=== PATIENT | male | born 1985 | race Caucasian/White ===

== ENCOUNTER 2019-08-07 13:07 | Inpatient (IN) | payer BC, SELFPAY ==
[2019-08-07] VITALS (8 sets, daily range): BP systolic 122–169; BP diastolic 83–114; PULSE 125–144; RESP 18–20; TEMP 36.5–37.6; O2SAT 97–100; BMI 43.7; BMI 42.0
--- NOTE | 2019-08-07 13:30 | CT_ITS ---
PROCEDURE: CT ABDOMEN PELVIS W CON CLINICAL INDICATION: left sided abd pain Left-sided abdominal pain with nausea COMPARISON: No exams were available for comparison TECHNIQUE: IV Contrast: 75ML OPTIRAY 350 Oral Contrast none Axial images obtained with sagittal and coronal reformats. All CT scans at the facility use one or more dose reduction, viz: automated exposure control, ma/kV adjustment per patient size (including targeted exams where dose is matched to indication, i.e. head), or iterative reconstruction technique. FINDINGS: LOWER THORAX: There are several noncalcified nodular densities in the right lower lobe which measure up to 9 mm. At least 5 noncalcified nodules are present in the right lung base medially and posteriorly. There is a 9 mm noncalcified nodule in the left lower lobe medially and a 4 mm noncalcified nodule in the left lung base posteriorly. ABDOMEN & PELVIS: There is diffuse fatty liver infiltration. The gallbladder, kidneys, and adrenal glands are unremarkable. There is diffuse infiltration of the peripancreatic fat along the body and tail the pancreas with scattered areas of increased density in the left upper quadrant peritoneal fat. There is a small amount of perisplenic fluid. There is thickening of the left anterior pararenal fascia with fluid in the left pericolic gutter. There is some thickening of the posterior lateral wall the greater curvature of the stomach. There is also some thickening of the colon in the left upper quadrant at the splenic flexure region. These findings are consistent with acute pancreatitis with phlegmonous changes and peripancreatic fluid collections. Fluid is present in the left anterior pararenal fascia and extends inferiorly into the lateral conal fascia. No obvious abscess or pancreatic necrosis. No acute bony anomalies.. There is a small umbilical hernia which contains fat IMPRESSION: Findings are compatible with acute pancreatitis with phlegmonous changes in the left upper quadrant and peripancreatic fluid collections. No obvious abscess or pancreatic necrosis. Noncalcified bilateral lower lobe pulmonary nodules. Consider dedicated chest CT with contrast for more thorough evaluation. Dictated by: Carlos Conroy MD 08/07/2019 14:31 Electronically signed by Carlos Conroy MD in [place] 08/07/2019 14:31
--- NOTE | 2019-08-07 13:31 | HMH.EDABDPAI ---
ED Disposition Clinical Impression: DKA (diabetic ketoacidoses) Qualifiers: Diabetes mellitus type: other specified (including DAYA) Diabetes mellitus complication detail: without coma Qualified Code(s): E13.10 - Other specified diabetes mellitus with ketoacidosis without coma Pancreatitis Qualifiers: Chronicity: acute Pancreatitis type: unspecified pancreatitis type Acute pancreatitis complication: unspecified Qualified Code(s): K85.90 - Acute pancreatitis without necrosis or infection, unspecified Disposition: Admitted As Inpatient Condition on Discharge: Serious Referrals: Preston Dawn MD [Primary Care Provider] - - Critical Care Critical Care Time: Yes Attestation: On 08/07/19, the high probability of a clinically significant, sudden or life threatening deterioration of the following system(s) required my full and direct attention, intervention and personal management. The time I documented below is in addition to time spent performing reported procedures but includes the following listed in this critical care notation. Total Critical Care Time: 35 Vital system(s) involved:: Circulatory Failure, Metabolic Failure, Renal Failure My critical care processes included: Assessment & monitoring of V/S, Initial and Re-exams, Data Review/Interpretation, Coordinating Care, Medication Orders and management, Documentation Medical Decision Making - Medical Records Medical records reviewed: Yes: I reviewed the patient's medical records. - Gonzalez Inquiry Pt receiving controlled substance: No Vital Signs: 08/07/19 13:09 Temperature 97.7 F Temperature Source Oral Pulse Rate [Radial] 144 H Respiratory Rate 20 Blood Pressure [Right Arm] 159/114 H Blood Pressure Mean [Right Arm] 129 Blood Pressure Source [Right Arm] Automatic Cuff Blood Pressure Position [Right Arm] Sitting 02 Sat by Pulse Oximetry 100 Oxygen Delivery Method Room Air - Lab Data Lab Results 08/07/19 13:39: WBC 15.1 H, RBC 5.94, Hgb 17.0, Hct 54.3 H, MCV 91.4, MCH 28.5, MCHC 31.2 L, RDW 13.9, Plt Count 255, MPV 10.0, Neut % (Auto) 69.1, Lymph % (Auto) 21.2, [place] % (Auto) 8.7, Eos % (Auto) 0.2, Baso % (Auto) 0.9, Neut # (Auto) 10.4 H, Lymph # (Auto) 3.2, [place] # (Auto) 1.3 H, Eos # (Auto) 0.0, Baso # (Auto) 0.1, Total Counted 100, Neutrophils % (Manual) 75, Lymphocytes % (Manual) 17, Monocytes % (Manual) 7, Eosinophils % (Manual) 1, Platelet Estimate Normal, Hypochromasia 1+ 08/07/19 13:39: Sodium 127 L, Potassium 3.8, Chloride 98, Carbon Dioxide 6 L*, Anion Gap 26.8 H, BUN 15, Creatinine 0.60 L, Estimated Creat Clear 181, Estimated GFR 155, Est GFR ( Amer) 188, Glucose 307 H, Calcium 9.7, Total Bilirubin 0.8, AST 28, ALT 25, Alkaline Phosphatase 155 H, Total Protein 8.5 H, Albumin 4.1, Globulin 4.4 H, Albumin/Globulin Ratio 0.9 L, Lipase 184 08/07/19 13:39: Acetone Level Large 08/07/19 14:14: Lactate 0.9 Result diagrams: 08/07/19 13:39 08/07/19 13:39 Orders (Tests/Meds): ED MEDICATIONS Generic Name Dose Route Start Last Admin Trade Name Freq PRN Reason Stop Dose Admin Sodium Chloride 1,000 mls @ 999 mls/hr 08/07/19 14:15 08/07/19 14:16 Sod Chlor 0.9% 1000ml Bag IV 08/07/19 15:15 999 mls/hr .Q1H1M KYMBERLY Administration Sodium Chloride 1,000 mls @ 999 mls/hr 08/07/19 14:15 Sod Chlor 0.9% 1000ml Bag IV 08/07/19 15:15 .Q1H1M KYMBERLY Insulin Human Regular 100 unit 101 mls @ 13.973 mls/hr 08/07/19 14:30 / Sodium Chloride IV 09/06/19 14:29 .Q7H14M KYMBERLY Protocol 0.1 UNITS/KG/HR Discontinued Medications Generic Name Dose Route Start Last Admin Trade Name Freq PRN Reason Stop Dose Admin Insulin Human Regular 10 unit 08/07/19 14:15 08/07/19 14:19 Humulin R Insulin 100 Units/Ml 10ml Vial IVP 08/07/19 14:16 Not Given ONCE ONE Ioversol 75 ml 08/07/19 13:57 08/07/19 13:58 Rad-Optiray 350 100ml Vial IV 08/07/19 13:58 75 ml ONCE ONE Administration Protocol Sodium Chloride 10 m
[2019-08-07 13:55] LABS: Alanine Aminotransferase 25 U/L (12-78); Albumin Level 4.1 g/dl (3.5-5.0); Albumin/Globulin Ratio 0.9 (1.1-1.8); Alkaline Phosphatase 155 U/L (38-126); Aspartate Amino Transferase 28 U/L (17-59); Bilirubin,Total 0.8 mg/dl (0.2-1.3); Blood Urea Nitrogen 15 mg/dl (9-20); Calcium 9.7 mg/dl (8.4-10.2); Chloride 98 mmol/L (98-107); Creatinine Clearance Estimated 181 mL/min (50-200); Estimated Glomerular Filt Rate 155 ml/min (>60); GFR (African American) 188 ML/MIN (>60); Globulin 4.4 g/dL (1.3-3.2); Glucose 307 mg/dl (74-100); Lipase 184 U/L (23-300); Potassium 3.8 mmoL/L (3.5-5.1); Sodium 127 mmol/L (136-145); Total Protein,Serum 8.5 g/dl (6.3-8.2)
[2019-08-07 14:12] LABS: Anion Gap 26.8 mEq/L (5-15); Carbon Dioxide 6 mmol/L (22.0-30.0)
[2019-08-07 14:22] LABS: Basophils # 0.1 K/mm3 (0-0.2); Basophils % 0.9 % (0.1-2.0); Eosinophils % 0.2 % (0.1-12.0); Hematocrit 54.3 % (42.0-52.0); Lymphocytes # 3.2 K/mm3 (0.7-4.5); Lymphocytes % 21.2 % (10-50); Mean Corpuscular HGB Conc 31.2 g/dL (31.8-35.4); Mean Corpuscular Hemoglobin 28.5 pg (27.0-31.2); Mean Corpuscular Volume 91.4 fl (80-94); Monocytes # 1.3 K/mm3 (0.1-1.0); Monocytes % 8.7 % (1.7-9.3); Neutrophils # 10.4 K/mm3 (1.8-7.8); Neutrophils % 69.1 % (37.0-80.0); Platelet Count 255 K/mm3 (142-424); Red Blood Count 5.94 M/mm3 (4.60-6.20); Red Cell Distribution Width 13.9 % (11.5-17.5); White Blood Count 15.1 K/mm3 (4.8-10.8)
[2019-08-07 14:23] LABS: Acetone, Serum (Rapid) Large (None Detect)
[2019-08-07 14:26] LABS: MANUAL DIFFERENTIAL MANUAL DIFFERENTIAL (MANUAL DIFF)
[2019-08-07 14:31] LABS: Lactic Acid 0.9 mmol/L (0.7-2.1)
[2019-08-07 14:37] LABS: Eosinophils % 1 % (0-3); Hypochromasia 1+; Lymphocytes % 17 % (10-50); Monocytes % 7 % (2-9); Neutrophils % 75 % (42-76); Total Cells Counted 100
[2019-08-07 14:38] LABS: VBG Base Excess -23.1 mmol/L (-2.4-2.3); VBG HCO3 6.5 mmol/L (23-30); VBG Oxygen Saturation 97.5 % (50-70); VBG PO2 110.6 mmol/L (28-40); VBG Total CO2 7.2 mmol/L (23-27)
[2019-08-07 14:38] LABS: Platelet Estimate Normal
--- NOTE | 2019-08-07 14:41 | PC.NURSE ---
speaking to dr levy for consult to admit, bed obtained bt house
[2019-08-07 14:44] LABS: VBG PCO2 21.3 mmol/L (35-51)
--- NOTE | 2019-08-07 15:06 | PC.NURSE ---
Report given to MERCEDES Thomas.
[2019-08-07 15:12] LABS: Microscopic, Urine URINE MICROSCOPIC (MICROSCOPIC)
[2019-08-07 15:14] LABS: Appearance,Urine CLEAR (Clear); Blood, Urine 1+ (Negative); Color,Urine YELLOW (Yellow); Glucose,Urine (UA) 3+ (Negative); Ketones,Urine 3+ (Negative); Leukocyte Esterase,Urine Negative (Negative); Nitrate,Urine Negative (Negative); Protein,Urine 2+ (Negative); Specific Gravity, Urine 1.025 (1.005-1.030); Urobilinogen,Urine 0.2 EU/dl (0.2)
[2019-08-07 15:18] LABS: POC Glucose,Bedside 258 (70-110)
[2019-08-07 15:27] LABS: Bacteria,Urine 2+ /lpf; Bilirubin,Urine Negative (Negative)
[2019-08-07 15:28] LABS: Squamous Epithelial Cell,Urine Occasional #/hpf (0-5)
--- NOTE | 2019-08-07 15:36 | HMH.PHAVTE ---
[facility] Pharmacy VTE Monitoring - Patient Demographics Admission date: 08/07/19 Report Date: 08/07/19 Time: 15:36 Allergies/Adverse Reactions: Patient Allergies Penicillins Allergy (Intermediate, Verified 08/07/19 14:22) Rash Height: 1.78 m Weight: 138.346 kg Patient Problems: Current Active Problems DKA (diabetic ketoacidoses) (Acute) Pancreatitis (Acute) - VTE Risk Labs: VTE Related Lab Results Hgb 17.0 g/dL (14.1-18.0) 08/07/19 13:39 Hct 54.3 % (42.0-52.0) H 08/07/19 13:39 Plt Count 255 K/mm3 (142-424) 08/07/19 13:39 BUN 15 mg/dl (9-20) 08/07/19 13:39 Creatinine 0.60 mg/dl (0.66-1.25) L 08/07/19 13:39 Estimated Creat Clear 181 mL/min (50-200) 08/07/19 13:39 - Prophylaxis VTE Prophylaxis Ordered?: Yes Types of VTE Prophylaxis: TEDS Knee High Location of Applied Device: Bilateral Lower Extremeties - VTE Diagnosis Confirmed Treatment or plan recommended: Continue Current Treatment
--- NOTE | 2019-08-07 16:05 | PC.NURSE ---
patient fsbs 251 increased by 2 units so patient insulin going at 5units/hr
--- NOTE | 2019-08-07 17:00 | HMH.HP ---
*Admission Date: 08/07/19 <Zainab Renee - 08/07/19 17:03> *Chief complaint: Abdominal pain <Zainab Renee 08/07/19 18:03> *History of present illness: Mr Valente is a 33-year-old male with a past medical history significant for hypertension, asthma, alcoholism, anxiety, white coat syndrome feeling very anxious currently, who presented to the emergency department for evaluation of abdominal bloating and crampy left-sided abdominal pain that sometimes radiated to the periumbilical region. Pain was worse with movement, but much better with rest. He has been having small firm stools, but very low volume. The pain started last week 08/03/2019 at which time he also had some nausea and vomiting. He was unable to eat food but consistently wanted large quantities of water. He was voiding about every 45 minutes. The pain continued through the following days. He thought he was better when he developed diarrhea. But then again he became constipated. He states he quit drinking about a week and a half ago and wondered if this might be related to his current problem. Initially he was constipated but then began to have watery stools. He noted no blood or blackness to the stool. He denied a fever. With evaluation in the emergency room was noted to demonstrate pancreatitis on the CT scan, new onset diabetes and DKA. Insulin drip was started to close his significantly elevated gap. Low bicarb noted. He was also significantly tachycardic probably related to his DKA and dehydration. Resuscitation continued in the emergency department along with insulin drip. Potassium was 3.8 and Glucose was in the low 300s. Patient noted that he had been out of his blood pressure medicine for several months. At the time of this exam patient said the abdominal pain has resolved. He denies nausea. <Zainab Renee - 08/07/19 18:03> [facility] History Medical History: Reports:: Anxiety, Asthma, Hypertension Denies:: Cancer, Diabetes Mellitus Type 1, Diabetes Mellitus Type 2, MRSA <Zainab Renee 08/07/19 17:03> *Have you ever received a pneumonia vaccine?: No <VíctorZainab - 08/07/19 17:03> *Have you received a flu vaccine this season?: No <Zainab Renee 08/07/19 17:03> Other Surgeries: Yes: No Previous Surgery <Zainab Renee 08/07/19 17:03> Amputation: No <Zainab Renee 08/07/19 17:03> - *Social History Educational Level: Attended College <Zainab Renee 08/07/19 17:03> Smoking Status: Never smoker <Zainab Renee 08/07/19 17:03> Alcohol Intake: current <VíctorZainab 08/07/19 17:03> Alcohol Intake Frequency:: 3 or more drinks per day <VíctorZainab 08/07/19 17:03> Substance Use Type: denies use <VíctorZainab 08/07/19 17:03> *Occupational Status:: employed <VíctorZainab 08/07/19 17:03> Housing: house <VíctorZainab 08/07/19 17:03> Household Members: spouse, family <VíctorZainab 08/07/19 17:03> *Travel in the last 8 weeks: None <Zainab Renee 08/07/19 17:03> - Psychiatric History Pschychiatric History:: Reports:: Anxiety <Zainab Renee 08/07/19 17:03> Family Hx:: No significant family history, no Diabetes, no Heart Attack, no Hypertension <VíctorZainab 08/07/19 18:03> Review of Systems - Constitutional Denies chills, Denies fever(s), Denies headache(s) <ReneeZainab 08/07/19 18:03> - Eyes Denies change in vision <ReneeZainab 08/07/19 18:03> - ENT Reports nosebleed (With vomiting), Reports post nasal drip, Denies ear pain, Denies sore throat <Renee,Zainab 08/07/19 18:03> - *Cardiovascular Denies chest pain, Denies shortness of breath <ReneeZainab 08/07/19 18:03> - *Respiratory Denies chest congestion, Denies cough, Denies shortness of breath, Denies coughing up blood <Renee,Zainab 08/07/19 18:03> - *Gastrointestinal Reports abdominal pain, Reports bloating, Reports change in bowel habits, Reports change in stools, Reports constipation, Reports nausea, Reports vomiting, Denies he
--- NOTE | 2019-08-07 18:17 | PC.NURSE ---
patient fsbs 176. since patient dropped from 213 to 176 in an hour went ahead and turned drip down 2 units making it 3 units/hr
--- NOTE | 2019-08-07 18:50 | PC.NURSE ---
patient has done well this shift. heart rate remains elevated in 130s md aware. patient states abdominal pain has resolved. is noted to be nauseated after a few bites of food. zofran given per jun. bp had been elevated but has started to come down. patient states he has a decent grasp on chesking his fsbs but is being encouraged to participate in learning of diabetes, diet, fsbs checks and eventually insulin administration. vitals stable will continue to monitor.
[2019-08-07 19:17] LABS: Anion Gap 19.4 mEq/L (5-15); Blood Urea Nitrogen 12 mg/dl (9-20); Chloride 102 mmol/L (98-107); Creatinine Clearance Estimated 271 mL/min (50-200); Estimated Glomerular Filt Rate 248 ml/min (>60); GFR (African American) 300 ML/MIN (>60); Glucose 185 mg/dl (74-100); Potassium 3.4 mmoL/L (3.5-5.1); Sodium 127 mmol/L (136-145)
[2019-08-07 19:23] LABS: Carbon Dioxide 9 mmol/L (22.0-30.0)
--- NOTE | 2019-08-07 19:29 | PC.NURSE ---
report given to gee
[2019-08-07 19:40] LABS: POC Glucose,Bedside 164 (70-110)
[2019-08-07 19:40] LABS: POC Glucose,Bedside 213 (70-110)
[2019-08-07 19:40] LABS: POC Glucose,Bedside 251 (70-110)
[2019-08-07 19:40] LABS: POC Glucose,Bedside 176 (70-110)
[2019-08-07 21:26] LABS: Calcium 8.5 mg/dl (8.4-10.2)
--- NOTE | 2019-08-07 22:30 | PC.NURSE ---
2100 order received for dulcolax suppository for constipation, pt refused
[2019-08-07 23:09] LABS: Chloride 102 mmol/L (98-107); Potassium 3.5 mmoL/L (3.5-5.1); Sodium 129 mmol/L (136-145)
[2019-08-07 23:11] LABS: Blood Urea Nitrogen 10 mg/dl (9-20); Creatinine Clearance Estimated 271 mL/min (50-200); Estimated Glomerular Filt Rate 248 ml/min (>60); GFR (African American) 300 ML/MIN (>60)
[2019-08-07 23:12] LABS: Anion Gap 21.5 mEq/L (5-15); Calcium 8.4 mg/dl (8.4-10.2); Glucose 220 mg/dl (74-100)
[2019-08-07 23:14] LABS: Hemoglobin A1C 9.2 % (4.0-6.0)
[2019-08-07 23:15] LABS: Carbon Dioxide 9 mmol/L (22.0-30.0)
[2019-08-08] VITALS (8 sets, daily range): BP systolic 148–181; BP diastolic 84–101; PULSE 100–130; RESP 16–20; TEMP 36.6–37.2; O2SAT 95–98; BMI 42.1
[2019-08-08 03:27] LABS: Acetone, Serum (Rapid) None Detected (None Detect)
[2019-08-08 03:55] LABS: POC Glucose,Bedside 187 (70-110)
[2019-08-08 03:55] LABS: POC Glucose,Bedside 179 (70-110)
[2019-08-08 03:55] LABS: POC Glucose,Bedside 173 (70-110)
[2019-08-08 03:55] LABS: POC Glucose,Bedside 198 (70-110)
[2019-08-08 03:55] LABS: POC Glucose,Bedside 175 (70-110)
[2019-08-08 03:55] LABS: POC Glucose,Bedside 194 (70-110)
[2019-08-08 03:55] LABS: POC Glucose,Bedside 184 (70-110)
[2019-08-08 03:55] LABS: POC Glucose,Bedside 159 (70-110)
--- NOTE | 2019-08-08 03:55 | PC.NURSE ---
2300 insulin increased to 4 units, will continue to monitor
--- NOTE | 2019-08-08 03:55 | PC.NURSE ---
0100 insulin drip increased to 5 units, will continue to monitor
--- NOTE | 2019-08-08 03:56 | PC.NURSE ---
0300 insulin drip increased to 7 units, will continue to monitor, pt c/o abdominal discomfort, refuses pain medication
[2019-08-08 05:56] LABS: Basophils % 0.3 % (0.1-2.0); Eosinophils # 0.1 K/mm3 (0.0-0.4); Eosinophils % 0.6 % (0.1-12.0); Lymphocytes # 1.8 K/mm3 (0.7-4.5); Lymphocytes % 15.3 % (10-50); Mean Corpuscular HGB Conc 32.2 g/dL (31.8-35.4); Mean Corpuscular Hemoglobin 28.7 pg (27.0-31.2); Mean Platelet Volume 9.3 fl (7.4-10.4); Monocytes # 1.2 K/mm3 (0.1-1.0); Monocytes % 10.5 % (1.7-9.3); Neutrophils # 8.4 K/mm3 (1.8-7.8); Neutrophils % 73.3 % (37.0-80.0); Platelet Count 202 K/mm3 (142-424); Red Blood Count 5.05 M/mm3 (4.60-6.20); Red Cell Distribution Width 14.1 % (11.5-17.5); White Blood Count 11.5 K/mm3 (4.8-10.8)
[2019-08-08 06:01] LABS: Hemoglobin 14.4 g/dL (14.1-18.0)
[2019-08-08 06:19] LABS: POC Glucose,Bedside 156 (70-110)
[2019-08-08 06:19] LABS: POC Glucose,Bedside 181 (70-110)
[2019-08-08 06:19] LABS: POC Glucose,Bedside 147 (70-110)
[2019-08-08 06:24] LABS: Alanine Aminotransferase 24 U/L (12-78); Albumin Level 3.3 g/dl (3.5-5.0); Alkaline Phosphatase 120 U/L (38-126); Aspartate Amino Transferase 32 U/L (17-59); Bilirubin,Total 0.8 mg/dl (0.2-1.3); Blood Urea Nitrogen 9 mg/dl (9-20); Calcium 8.6 mg/dl (8.4-10.2); Carbon Dioxide 16 mmol/L (22.0-30.0); Chloride 104 mmol/L (98-107); Creatinine Clearance Estimated 271 mL/min (50-200); Estimated Glomerular Filt Rate 248 ml/min (>60); GFR (African American) 300 ML/MIN (>60); Globulin 3.3 g/dL (1.3-3.2); Glucose 166 mg/dl (74-100); Lipase 138 U/L (23-300); Sodium 128 mmol/L (136-145); Total Protein,Serum 6.6 g/dl (6.3-8.2)
[2019-08-08 06:26] LABS: Amylase < 30 U/L (30-110)
[2019-08-08 06:53] LABS: POC Glucose,Bedside 149 (70-110)
--- NOTE | 2019-08-08 07:01 | PC.NURSE ---
dr clayton notified of lab results, fs, and insulin rate, new orders received
--- NOTE | 2019-08-08 09:05 | HMH.ACPN2 ---
<Zainab Renee - Last Filed: 08/08/19 09:05> Internal Medicine - PN: Subj *Date: 08/08/19 *Time: 09:05 Interval history: Patient is doing well this morning. He slept very little during the night due to nursing interventions. He states his abdomen is no longer painful. He denies nausea. He was able to eat a little bit of breakfast this morning. He has been back and forth to the bathroom without difficulty. He is voiding QS. His bowels did move last night. Patient states his heart rate is always around 120. He denies chest pain and shortness of breath. Patient states he does know how to do fingerstick blood sugars. He is ready to learn more. Labs this morning revealed a white blood cell count of 11.5 with a hemoglobin of 14.4 and hematocrit of 45; blood chemistries show a sodium of 128 and potassium of 3; anion gap is normal at 11; BUN is 9 and creatinine 0.4. Blood sugars have been 166, 147, and 149 thus far. Amylase and lipase are not elevated. Exam Vital signs and Labs for Last 24 Hours: Temp Pulse Resp BP Pulse Ox 98 F 128 H 20 168/98 H 96 08/08/19 08:00 08/08/19 08:00 08/08/19 08:00 08/08/19 08:00 08/08/19 08:00 Laboratory Results - last 24 hr 08/07/19 13:39: WBC 15.1 H, RBC 5.94, Hgb 17.0, Hct 54.3 H, MCV 91.4, MCH 28.5, MCHC 31.2 L, RDW 13.9, Plt Count 255, MPV 10.0, Neut % (Auto) 69.1, Lymph % (Auto) 21.2, [place] % (Auto) 8.7, Eos % (Auto) 0.2, Baso % (Auto) 0.9, Neut # (Auto) 10.4 H, Lymph # (Auto) 3.2, [place] # (Auto) 1.3 H, Eos # (Auto) 0.0, Baso # (Auto) 0.1, Total Counted 100, Neutrophils % (Manual) 75, Lymphocytes % (Manual) 17, Monocytes % (Manual) 7, Eosinophils % (Manual) 1, Platelet Estimate Normal, Hypochromasia 1+ 08/07/19 13:39: Sodium 127 L, Potassium 3.8, Chloride 98, Carbon Dioxide 6 L*, Anion Gap 26.8 H, BUN 15, Creatinine 0.60 L, Estimated Creat Clear 181, Estimated GFR 155, Est GFR ( Amer) 188, Glucose 307 H, Calcium 9.7, Total Bilirubin 0.8, AST 28, ALT 25, Alkaline Phosphatase 155 H, Total Protein 8.5 H, Albumin 4.1, Globulin 4.4 H, Albumin/Globulin Ratio 0.9 L, Lipase 184 08/07/19 13:39: Acetone Level Large 08/07/19 14:14: Lactate 0.9 08/07/19 14:26: VBG pH 7.10 L, VBG pCO2 21.3 L, VBG pO2 110.6 H, VBG HCO3 6.5 L, VBG Total CO2 7.2 L, VBG O2 Saturation 97.5 H, VBG Base Excess -23.1 L 08/07/19 15:09: Urine Color Yellow, Urine Appearance Clear, Urine pH 6.0, Ur Specific [place] 1.025, Urine Protein 2+, Urine Glucose (UA) 3+, Urine Ketones 3+, Urine Blood 1+, Urine Nitrate Negative, Urine Bilirubin Negative, Urine Urobilinogen 0.2, Ur Leukocyte Esterase Negative, Urine RBC 5-10, Urine WBC 10-20, Ur Squamous Epith Cells Occasional, Urine Bacteria 2+, Fine Granular Casts 5- 0 08/07/19 15:11: POC Glucose 258 H 08/07/19 16:04: POC Glucose 251 H 08/07/19 17:09: POC Glucose 213 H 08/07/19 18:13: POC Glucose 176 H 08/07/19 19:00: Sodium 127 L, Potassium 3.4 L, Chloride 102, Carbon Dioxide 9 L* D, Anion Gap 19.4 H, BUN 12, Creatinine 0.40 L D, Estimated Creat Clear 271, Estimated GFR 248, Est GFR ( Amer) 300 D, Glucose 185 H D, Calcium 8.5 D 08/07/19 19:29: POC Glucose 164 H 08/07/19 20:14: POC Glucose 159 H 08/07/19 21:09: POC Glucose 179 H 08/07/19 22:05: POC Glucose 198 H 08/07/19 22:54: POC Glucose 194 H 08/07/19 22:55: Hemoglobin A1c 9.2 H 08/07/19 22:55: Sodium 129 L, Potassium 3.5, Chloride 102, Carbon Dioxide 9 L*, Anion Gap 21.5 H, BUN 10, Creatinine 0.40 L, Estimated Creat Clear 271, Estimated GFR 248, Est GFR ( Amer) 300, Glucose 220 H, Calcium 8.4 08/08/19 00:11: POC Glucose 184 H 08/08/19 00:52: POC Glucose 187 H 08/08/19 01:45: POC Glucose 175 H 08/08/19 03:00: Acetone Level None detected 08/08/19 03:04: POC Glucose 173 H 08/08/19 03:52: POC Glucose 181 H 08/08/19 04:55: POC Glucose 156 H 08/08/19 05:20: WBC 11.5 H, RBC 5.05, Hgb 14.4 D, Hct 45.0, MCV 89.0, MCH 28.7, MCHC 32.2, RDW 14.1, Plt Count 202, MPV 9.3, Neut % (Auto) 73.3, Lymph % (Auto) 15.3, [place] % (Auto) 10.5 H, Eos
--- NOTE | 2019-08-08 09:08 | CT_ITS ---
PROCEDURE: CT CHEST WO/W CON CLINCAL INDICATION: Pulmonary nodules noted on CT of the abdomen Follow-up pulmonary nodules COMPARISON: CT ABDOMEN PELVIS W CON from 08/07/2019 TECHNIQUE: IV Contrast: 75ml Optiray 350 Axial images obtained with sagittal and coronal reformats. All CT scans at the facility use one or more dose reduction, viz: automated exposure control, ma/kV adjustment per patient size (including targeted exams where dose is matched to indication, i.e. head), or iterative reconstruction technique. Exam is performed without and with contrast FINDINGS: HEART AND MEDIASTINAL STRUCTURES: Few scattered mildly prominent mediastinal lymph nodes measuring up to 1.6 cm in the subcarinal region. No hilar mass is evident. LUNGS AND PLEURAL SPACES: There are several scattered noncalcified pulmonary nodules which were described in the abdomen report. No additional nodules are identified. There are no effusions or infiltrates. There are at least 4 pulmonary nodules in the right lower lobe the largest at 9 mm. There are at least 2 nodules in the left lower lobe the largest at 12 mm medially. BONY STRUCTURES: No acute bony abnormalities apparent. UPPER ABDOMEN: Findings of pancreatitis are once again noted with phlegmonous changes in the left upper quadrant and along the pancreatic tail thickening of the anterior pararenal fascia. There is diffuse fatty liver ADDITIONAL FINDINGS: No other significant abnormalities. IMPRESSION: 1. There are small noncalcified pulmonary nodules in both lower lobes. These could be inflammatory//infectious or neoplastic. Recommend 3 month follow-up. 2. Acute pancreatitis. 3. Mildly prominent mediastinal lymph nodes nonspecific Dictated by: Carlos Conroy MD 08/08/2019 12:06 Electronically signed by Carlos Conroy MD in [place] 08/08/2019 12:06
[2019-08-08 12:01] LABS: POC Glucose,Bedside 220 (70-110)
--- NOTE | 2019-08-08 12:07 | CA_ITS ---
APPROVED REPORT EXAM: Comprehensive 2D, Doppler, and color-flow Echocardiogram Manager Research: Vania Paulson RT(R) Ht: 5 ft 10 in Wt: 293lbs BSA: 2.46 BP: 168/98 mmHg Indications: Patient states he's had HTN for years but has been unable to take his blood pressure medication due to insurance issues. Tachycardia, pancreatitis, DKA, asthma, obesity 2D Dimensions LVOT 2.16 cm (M/F) 1.5-2.5 M-Mode Dimensions RVDd 2.22 cm (0.9-2.6) LVDd 5.21 cm (3.5-5.7) LVDs 3.79 cm (3.5-5.7) IVSd 1.05 cm (0.6-1.1) PWd 0.93 cm (0.6-1.1) EF (Teich) 52.70% FS 27.30% EDV (Teich) 130.10 mL ESV (Teich) 61.60 mL LV Diastology E/A Ratio 0.76 Mitral Valve MV A Velocity 106.00 (40-130 cm/s) Left Ventricle Left atrium is normal size, left ventricle is normal size, left ventricular wall thickness is upper limit of normal, there is preserved left ventricular systolic function, visually estimated ejection fraction 55 to 60% with no regional wall motion abnormality, diastolic parameters are within normal range. Right Ventricle Right atrium and right ventricular normal size and contractility. Aortic Valve Aortic valve is minimally thickened and fibrosed, there is no aortic stenosis or aortic insufficiency. Mitral Valve Mitral valve is grossly normal, there is trace mitral regurgitation. Tricuspid Valve Tricuspid valve is grossly normal, there is trace tricuspid regurgitation. Pulmonic Valve Pulmonic valve is poorly visualized. Great Vessels Aortic root is normal size. Pericardium No significant pericardial effusion noted. Conclusion 1. Technically difficult study because of the patient fact in poor acoustic windows 2. Normal left ventricular size, preserved left ventricular systolic function, visually estimated ejection fraction 55 to 60% with no regional wall motion abnormality, diastolic parameters are within normal range. 3. Trace mitral and tricuspid regurgitation. 4. No significant pericardial effusion noted. Electronically signed by : Willie Parkinson, 08/08/2019 20:47:51
--- NOTE | 2019-08-08 16:59 | PC.NURSE ---
PATIENT HAS BEEN RESTING IN BED T/O SHIFT. HE IS RESTLESS DUE TO THE BED COMFORT LEVEL. STATES HE FEELS 100X BETTER THAN WHEN HE CAME IN. HE HAS BEEN EDUCATED ON INSULIN INJECTIONS BUT HAS NOT YET BEEN ABLE TO GIVE HIS OWN INJECTION. CALL LIGHT WITHIN REACH WILL CONTINUE TO MONITOR
[2019-08-08 18:17] LABS: POC Glucose,Bedside 179 (70-110)
[2019-08-09] VITALS: BP 120/74; PULSE 111; RESP 16; TEMP 36.9; O2SAT 97
[2019-08-09 00:52] LABS: POC Glucose,Bedside 199 (70-110)
[2019-08-09 04:00] VITALS: BP 143/84; PULSE 117; PULSE 120; RESP 16; TEMP 36.9; O2SAT 97
--- NOTE | 2019-08-09 04:45 | PC.NURSE ---
Pt has slept at intervals this shift. Has c/o abdominal discomfort and gas pains. Pt stated he hasn't had a sufficient BM. He was administered dulcolax and had 1 small BM since administration. Pt states he feels better. Education on self administration of insulin given. Pt reluctantly gave himself injection. Will educate again in AM and have pt check glucose and self administer again. Pt remains on RA. Continues to remain Sinus Tach on telemetry. Pt states he has always had a fast HR. BP elevated x1 this shift, but improved after administration of metoprolol. No other concerns at this time. Will continue to monitor.
[2019-08-09 05:00] VITALS: BMI 42.0
[2019-08-09 06:46] LABS: Basophils # 0.2 K/mm3 (0-0.2); Basophils % 1.6 % (0.1-2.0); Eosinophils # 0.1 K/mm3 (0.0-0.4); Eosinophils % 0.7 % (0.1-12.0); Hematocrit 45.6 % (42.0-52.0); Hemoglobin 14.8 g/dL (14.1-18.0); Lymphocytes % 14.4 % (10-50); Mean Corpuscular HGB Conc 32.5 g/dL (31.8-35.4); Mean Corpuscular Hemoglobin 28.5 pg (27.0-31.2); Mean Corpuscular Volume 87.8 fl (80-94); Mean Platelet Volume 9.1 fl (7.4-10.4); Monocytes # 1.1 K/mm3 (0.1-1.0); Monocytes % 8.2 % (1.7-9.3); Neutrophils # 10.5 K/mm3 (1.8-7.8); Neutrophils % 75.2 % (37.0-80.0); Platelet Count 242 K/mm3 (142-424); Red Blood Count 5.19 M/mm3 (4.60-6.20)
[2019-08-09 06:58] LABS: Chloride 100 mmol/L (98-107)
[2019-08-09 06:59] LABS: Potassium 3.7 mmoL/L (3.5-5.1); Sodium 129 mmol/L (136-145)
[2019-08-09 07:02] LABS: Anion Gap 22.7 mEq/L (5-15); Blood Urea Nitrogen 8 mg/dl (9-20); Calcium 8.8 mg/dl (8.4-10.2); Creatinine Clearance Estimated 362 mL/min (50-200); Estimated Glomerular Filt Rate 345 ml/min (>60); GFR (African American) 418 ML/MIN (>60); Glucose 190 mg/dl (74-100)
[2019-08-09 07:04] LABS: Carbon Dioxide 10 mmol/L (22.0-30.0)
--- NOTE | 2019-08-09 07:39 | SW/DCPLANNER ---
PATIENT WAS ADMITTED TO [facility] ON 08/07/19 WITH A DIAGNOSIS OF DKA... PATIENT WILL RECEIVE DIABETIC TEACHING AND WILL NEED A GLUOMETER ONCE READY FOR DISCHARGE.. PATIENT WILL RETURN BACK HOME PRIOR TO ADMISSION...
[2019-08-09 08:00] VITALS: BP 152/88; PULSE 120; PULSE 127; RESP 18; TEMP 36.9; O2SAT 98
--- NOTE | 2019-08-09 08:30 | PC.NURSE ---
PATIENT WAS EDUCATED ON LANTUS PEN AND ADMINISTRATION. HE ADMINISTERED HIS LANTUS DOSE HIMSELF THIS AM
--- NOTE | 2019-08-09 08:48 | HMH.ACPN2 ---
<Tala Carrillo - Last Filed: 08/09/19 08:48> Internal Medicine - PN: Subj *Date: 08/09/19 *Time: 08:48 Interval history: Patient states he is feeling better. His heart rate is elevated but he states this is normal. He states he is eating well and denies any pain and wants to go home. Exam Vital signs and Labs for Last 24 Hours: Temp Pulse Resp BP Pulse Ox 98.4 F 127 H 16 143/84 H 97 08/09/19 04:00 08/09/19 08:00 08/09/19 04:00 08/09/19 04:00 08/09/19 04:00 Laboratory Results - last 24 hr 08/08/19 11:41: POC Glucose 220 H 08/08/19 16:22: POC Glucose 179 H 08/08/19 21:18: POC Glucose 199 H 08/09/19 06:08: WBC 14.0 H, RBC 5.19, Hgb 14.8, Hct 45.6, MCV 87.8, MCH 28.5, MCHC 32.5, RDW 14.0, Plt Count 242, MPV 9.1, Neut % (Auto) 75.2, Lymph % (Auto) 14.4, [place] % (Auto) 8.2, Eos % (Auto) 0.7, Baso % (Auto) 1.6, Neut # (Auto) 10.5 H, Lymph # (Auto) 2.0, [place] # (Auto) 1.1 H, Eos # (Auto) 0.1, Baso # (Auto) 0.2 08/09/19 06:08: Sodium 129 L, Potassium 3.7 D, Chloride 100, Carbon Dioxide 10 L D, Anion Gap 22.7 H, BUN 8 L, Creatinine 0.30 L D, Estimated Creat Clear 362 H, Estimated GFR 345, Est GFR ( Amer) 418 D, Glucose 190 H, Calcium 8.8 I & O for Last 24 hours: Intake & Output 08/06/19 08/07/19 08/08/19 08/09/19 11:59 11:59 11:59 11:59 Intake Total 6066 / 6066 1715 / 1715 Balance 6066 / 6066 1715 / 1715 Weight 294 lb 6 oz 294 lb 2.463 oz Microbiology Reports for the Last 24 Hours: Microbiology 08/07/19 15:09 Urine,Clean Catch Urine Culture - Preliminary NO GROWTH AFTER 24 HOURS - Constitutional no acute distress - *Routine Respiratory Exam Present: CTA bilaterally - *Routine Cardiovascular Exam Present: tachycardia - *Routine Abdominal Exam Present: soft, normoactive bowel sounds. Absent: tenderness - *Routine Extremities Exam Absent: cyanosis, clubbing, edema - *Routine Skin Exam Present: warm. Absent: rash - *Routine Neurological Exam Present: alert, oriented X3 Assessment and Plan (1) Adult onset diabetes mellitus with ketoacidosis Current visit: Yes Status: Acute Category: Medical Code(s): E11.10 - Type 2 diabetes mellitus with ketoacidosis without coma (2) Hypertension Current visit: Yes Status: Acute Category: Medical Code(s): I10 - Essential (primary) hypertension (3) DKA (diabetic ketoacidoses) Current visit: Yes Status: Acute Qualifiers: Diabetes mellitus type: other specified (including DAYA) Diabetes mellitus complication detail: without coma Qualified Code(s): E13.10 - Other specified diabetes mellitus with ketoacidosis without coma Category: Medical Code(s): E11.10 - Type 2 diabetes mellitus with ketoacidosis without coma (4) Pancreatitis Current visit: Yes Status: Acute Qualifiers: Chronicity: acute Pancreatitis type: unspecified pancreatitis type Acute pancreatitis complication: unspecified Qualified Code(s): K85.90 - Acute pancreatitis without necrosis or infection, unspecified Category: Medical Code(s): K85.90 - Acute pancreatitis without necrosis or infection, unspecified (5) Pulmonary nodules Current visit: Yes Status: Acute Category: Medical Code(s): R91.8 - Other nonspecific abnormal finding of lung field (6) Hypokalemia Current visit: Yes Status: Acute Category: Medical Code(s): E87.6 - Hypokalemia - Assessment and plan all Dx Assessment and Plan for all problems:: Patient's heart rate is elevated in the 130s. His glucose has improved but his sodium is still low. His potassium has normalized. His white count is elevated. Dietary is supposed to see the patient today. Will discuss further care with Dr. Dawn. <Preston Dawn - Last Filed: 08/09/19 10:27> Internal Medicine - PN: Subj *Date: 08/09/19 *Time: 10:24 Exam Vital signs and Labs for Last 24 Hours: Temp Pulse Resp BP Pulse Ox 98.5 F 127 H
--- NOTE | 2019-08-09 10:02 | HMH.PHAINT ---
DISCHARGE COUNSELING COMPLETE. DISCUSSED ADDITION OF LANTUS AND SLIDING SCALE INSULINS, METOPROLOL, AND LISINOPRIL. PATIENT ENDORSED NO QUESTIONS AT THIS TIME.
[2019-08-09 11:18] VITALS: BMI 42.0
--- NOTE | 2019-08-10 16:02 | HMH.DCSUM ---
General - General Admission date:: 08/07/19 <Preston Dawn - 08/10/19 16:56> 08/07/19 <DemarcusTala shabazz - 08/10/19 16:09> Discharge date: 08/09/19 <DemarcusTala shabazz - 08/10/19 16:09> HPI HPI: Mr Valente is a 33-year-old male with a past medical history significant for hypertension, asthma, alcoholism, anxiety, white coat syndrome feeling very anxious currently, who presented to the emergency department for evaluation of abdominal bloating and crampy left-sided abdominal pain that sometimes radiated to the periumbilical region. Pain was worse with movement, but much better with rest. He had been having small firm stools, but very low volume. The pain started last week 08/03/2019 at which time he also had some nausea and vomiting. He was unable to eat food but consistently wanted large quantities of water. He was voiding about every 45 minutes. The pain continued through the following days. He thought he was when he developed diarrhea. But then again he became constipated. He states he quit drinking about a week and a half ago and wondered if this might be related to his current problem. Initially he was constipated but then began to have watery stools. He noted no blood or blackness to the stool. He denied a fever. With evaluation in the emergency room was noted to demonstrate pancreatitis on the CT scan, new onset diabetes and DKA. Insulin drip was started to close his significantly elevated gap. Low bicarb noted. He was also significantly tachycardic probably related to his DKA and dehydration. Resuscitation continued in the emergency department along with insulin drip. Potassium was 3.8 and Glucose was in the low 300s. Patient noted that he had been out of his blood pressure medicine for several months. <GerardoTala - 08/10/19 16:09> Hospital Course Hospital Course: The patient's abdominal/pelvic CT showed pancreatitis as well as noncalcified bilateral lower lobe pulmonary nodules. Radiology recommended dedicated chest CT with contrast for more thorough evaluation. The patient was started on an insulin drip and IV fluids. He did have a chest CT which showed small noncalcified pulmonary nodules in both lower lobes. Radiology felt this could be inflammatory versus infectious versus neoplastic. They recommended a 3-month follow-up. The patient also had an echo which showed an EF of 55 to 60%. His abdominal pain resolved as did his nausea. He was able to start eating. His bowels did move. His heart rate remained elevated. He was weaned off the insulin drip and started on Lantus and sliding scale insulin. Lisinopril and metoprolol were added for blood pressure and heart rate control. Dietary was consulted for education. By 08/08/1929, the patient was feeling better and very anxious to go home. He was eating well and his glucose improved. His heart rate was still elevated. His potassium had normalized. He met with a dietitian and he was taught how to give himself insulin injections. He was stable to be discharged home and will follow-up in [address] Dawn. <Tala Carrillo - 08/10/19 16:09> Objective Vital signs: Temp Pulse Resp BP Pulse Ox 98.5 F 127 H 18 152/88 H 98 08/09/19 08:00 08/09/19 08:00 08/09/19 08:00 08/09/19 08:00 08/09/19 08:00 <Preston Dawn - 08/10/19 16:56> Temp Pulse Resp BP Pulse Ox 98.5 F 127 H 18 152/88 H 98 08/09/19 08:00 08/09/19 08:00 08/09/19 08:00 08/09/19 08:00 08/09/19 08:00 <Tala Carrillo - 08/10/19 16:09> Narrative: - Constitutional no acute distress - *Routine Respiratory Exam Present: CTA bilaterally - *Routine Cardiovascular Exam Present: tachycardia - *Routine Abdominal Exam Present: soft, normoactive bowel sounds. Absent: tenderness - *Routine Extremities Exam Absent: cyanosis, clubbing, edema - *Routine Skin Exam Present: warm. Absent: rash - *Routine Neurological Ex
[2019-08-10 16:17] LABS: POC Glucose,Bedside 177 (70-110)
== END 2019-08-09 11:05 | disposition home or self-care (01) | DRG 637 ==
LOC: ER 14:51 → 2ND 15:04
PROVIDERS: Nurse Practitioner Family; Admitting Provider Family Medicine; Emergency Provider Emergency Medicine; PCP Family Medicine; Visit Provider Family Medicine
DX: E11.10 Type 2 diabetes mellitus with ketoacidosis without coma (principal); K85.90 Acute pancreatitis without necrosis or infection, unspecified; E87.6 Hypokalemia; I10 Essential (primary) hypertension; R91.1 Solitary pulmonary nodule; J45.909 Unspecified asthma, uncomplicated; F10.20 Alcohol dependence, uncomplicated
CPT/HCPCS: 36415; 71270; 74177; 80048; 80053; 81001; 82009; 82150; 82803; 82962; 83036; 83605; 83690; 85007; 85025; 87086; 93306; 96365; 96366; 96367; 99284; J2405; Q9967

== ENCOUNTER 2020-07-08 04:40 | Emergency (ER) | payer OTHER, SELFPAY ==
--- NOTE | 2020-07-08 05:00 | PC.NURSE ---
patient's listed parent contact, jhonathan-spoke with nursing staff; warehouse shipping clerk, alexis edward advised family that patient was in a critical state and she needed to come as soon as was feasible.
[2020-07-08 05:08] VITALS: BMI 39.4
--- NOTE | 2020-07-08 05:09 | PC.NURSE ---
EMS reports receiving call out at 0345 from pt. EMS arrived on scene to pt being alert, reporting vomiting for multiple days. Pt went into arrest during transfer to ambulance at approximately 0410. EMS gave a total of 6mg of epi and an amp of D50 in route. pt was intubated via ETT. 0440- Pt arrived to ED. CPR being provided by HIRAM CPR device. Pt being ventilated via bag-mask to ETT. Bilateral breath sounds auscultated. No spontaneous breathing by pt. Pt is cyanotic on arrival and cool to touch. No central pulses palpable. Left pupil constricted and non-reactive. Right pupil dilated and non-reactive. Distended abdomen. IO in place to left humerus. Pt asystole on EMS monitor. Pt transferred to bed and CPR initiated by staff. 0442-Pads placed and deep suction provided by RT d/t secretions. 0443-Epi given, atropine 0443-Finger stick 225 0444-Pulse check. No pulse. Asystole on monitor. 0446-Epi given 0447- Pulse check. No central pulses. Asystole on monitor. TOD called by MD Roland
--- NOTE | 2020-07-08 05:51 | PC.NURSE ---
Malick Tovar notified at [phone]
--- NOTE | 2020-07-08 05:52 | HMH.EDCPR ---
ED Disposition Clinical Impression: Cardiac arrest Disposition: Condition on Discharge: Critical Referrals: Preston Dawn MD [Primary Care Provider] - - Critical Care Critical Care Time: No Attestation: On 07/08/20, the high probability of a clinically significant, sudden or life threatening deterioration of the following system(s) required my full and direct attention, intervention and personal management. The time I documented below is in addition to time spent performing reported procedures but includes the following listed in this critical care notation. [facility] Code Documentation - Arrest Information Outside of Hospital The Code Document Section documentation for [id number] Donnie Valente was populated with data that defaulted in from the immigration guard in the Code Assessment on f_Reg Service Date] to provide within this report, the status and treatment of the patient in the ED during a Code. This documentation will be supplemented with my direct findings within the body of the report. Date Treatment Initiated: 07/08/20 Time Treatment Initiated: 04:15 Treatment Initiated By: EMS Location of Arrest: Pt home Arrest Witnessed: Yes Estimated Down Time: 25 min - ALS Code Inititation ALS Initiated By: EMS ALS Type: ACLS ALS Initiated Start Time: 04:15 - Patient Condition At Code Start Condition of Patient at Start of Code: Pulseless, Apneic, Unconscious Monitoring Devices: ECG Monitor - Circulation Initial Cardiac Rhythm: Asystole - Oxygenation Oxygen Breathing Status: Assisted - Labs Fingerstick Blood Glucose: 225 - Procedures ABG's Drawn: No Labs Drawn: No - Assisted Ventilation ETT Insertion Time: 04:15 ETT Insertion Site: Oral Endotracheal ETT Tube Inserted By: EMS - Code End Time Code Ended: 00:47 Patient Successfully Resuscitated: No Reason Code Ended: - Efforts Terminated Family Members Present During Code: No Names of All Individuals Present at Code: Tj. Farnsworth. Brittany. bee. will. griffin. carmen. jair - Mental Status Eye Opening: None Motor Response: None Verbal Response: None Coma scale total: 3 - Patient Expiration Date: 07/08/20 Expiration Time: 04:47 Pronounced by: Carmen Time Pronounced: 04:47 Post Mortem Care Provided: Yes Ed Manager Case: Yes Medical Decision Making - Medical Records Medical records reviewed: Yes: I reviewed the patient's medical records. - Gonzalez Inquiry Pt receiving controlled substance: No Orders (Tests/Meds): ED MEDICATIONS Generic Name Dose Route Start Last Admin Trade Name Freq PRN Reason Stop Dose Admin Epinephrine HCl 1 mg 07/08/20 04:40 07/08/20 04:46 Epinephrine 0.1 Mg/Ml 10ml Syringe (Crash Cart) IV 08/07/20 04:39 1 mg NEEDED PRN Administration Code Blue Med Administration Discontinued Medications Generic Name Dose Route Start Last Admin Trade Name Freq PRN Reason Stop Dose Admin Atropine Sulfate 1 mg 07/08/20 04:43 07/08/20 04:43 Atropine 1mg/10ml Syringe (Crash Cart) IV 07/08/20 04:44 1 mg ONCE ONE Administration CPR HPI - General Chief Complaint: Cardiac Arrest/CPR Stated Complaint: cardiac Time Seen by Provider: 07/08/20 04:40 Mode of Arrival: EMS Source of Information: EMS, Medical Record Limitations: Physical Limitations - History of Present Illness MD complaint: stopped breathing Known history of: other (liver disease) - Related Data Previous Rx's Medication Instructions Recorded Insulin Glargine,Hum.rec.anlog 40 unit SQ DAILY #1 box 08/09/19 [Lantus Solostar 100 Units/mL 3mL flexpen] Insulin Lispro [HumaLOG 100 See Protocol SQ ACHS #10 ml 08/09/19 units/mL 3mL vial (SSI)] Metoprolol Succinate [Toprol XL 25 mg PO BID #60 tab.er.24h 08/09/19 25mg tablet] lisinopriL [Zestril 5mg 5 mg PO DAILY #30 tab 08/09/19 Tablet] Allergies Allergy/AdvReac Type Severity Reaction Status Date / Time Penicillins
--- NOTE | 2020-07-08 06:01 | PC.NURSE ---
Spoke with Rosalva Stephenson from [facility]. Pt has been ruled out for donation.
[2020-07-08 09:45] VITALS: BP 0/0; PULSE 0; RESP 0; TEMP -17.7; TEMP 0; O2SAT 0
[2020-09-23 12:23] LABS: POC Glucose,Bedside 225 (70-110)
== END 2020-07-08 09:48 | disposition expired ==
PROVIDERS: Emergency Provider Emergency Medicine; PCP Family Medicine
DX: I46.9 Cardiac arrest, cause unspecified (principal); I10 Essential (primary) hypertension; K76.9 Liver disease, unspecified; F41.9 Anxiety disorder, unspecified; Z79.899 Other long term (current) drug therapy; E66.9 Obesity, unspecified; Z68.39 Body mass index [BMI] 39.0-39.9, adult
CPT/HCPCS: 31500; 82962; 96374; 96375; 99283